=== PATIENT | male | born 1975 | race Caucasian/White ===

== ENCOUNTER 2021-06-06 12:31 | Emergency (ER) | payer BC ==
[~2021-06-06] VITALS: Ht 177.8 cm; Wt 86.2 kg
[2021-06-06 12:31] VITALS: BP_SYST 112
--- NOTE | 2021-06-06 12:31 | NUR ---
BROUGHT IN BY [facility] AND PLACED IN HALLWAY BED, TRIAGED AND REPORT GIVEN TO GABRIELA
--- NOTE | 2021-06-06 12:35 | NUR ---
Pt brought by self, A&Ox3, pt presents to ER with lower back pain radiating to L lower leg , denies trauma, skin pink and warm, cap refill <3.
[2021-06-06] MEDS ORDERED: KETOROLAC TROMETHAMINE 60 MG/2 ML VIAL IM ONE (13:00)
[2021-06-06] MEDS ORDERED: MORPHINE 4 MG INJ. 4 MG/ML VIAL IM ONE (14:45)
--- NOTE | 2021-06-06 15:17 | NUR ---
PT PAIN FREE, STATED HE IS UNABLE TO MOVE DUE TO SEVERE LBP. SUPINE POSITION PROVIDES PAIN FREE POSITIONING
--- NOTE | 2021-06-06 15:53 | NUR ---
DR MONROE SPEAKING WITH PT AT THIS TIME.
--- NOTE | 2021-06-06 16:26 | NUR ---
UP TO HIS FEET. CALM, ALERT, RESP UNLABORED
[2021-06-06 16:29] VITALS: BP_SYST 121
[2021-06-06] MEDS ORDERED: CYCL10TA24 PO (16:30)
[2021-06-06] MEDS ORDERED: LIDO1ADH71 TD (16:30)
[2021-06-06] MEDS ORDERED: IBUP-1969 PO (16:30)
[2021-06-06] MEDS ORDERED: ACET-2634 PO (16:30)
--- NOTE | 2021-06-06 16:30 | NUR ---
Patient given written and verbal discharge instructions and verbalizes understanding. ER MD MONROE discussed with patient the results and treatment provided. Patient in stable condition. ID arm band removed. Rx given. Patient educated on pain management and to follow up with PMD. Pain Scale 10/10. Opportunity for questions provided and answered. Medication side effect fact sheet provided.
== END 2021-06-06 16:30 | disposition home or self-care (01) ==
LOC: SED 12:31
DX: M54.5 Low back pain (principal)
CPT/HCPCS: 72131; 76376; 96372; 99284; J1885; J2270